=== PATIENT | female | born 2000 | race Caucasian/White ===

== ENCOUNTER 2019-06-24 14:25 | Emergency (ER) | payer BC, SELFPAY ==
[2019-06-24 14:26] VITALS: BP 117/78; PULSE 89; RESP 18; TEMP 36.8; O2SAT 100; BMI 18.5
--- NOTE | 2019-06-24 14:58 | EKG12_ITS ---
Test Reason : Blood Pressure : / mmHG Vent. Rate : 086 BPM Atrial Rate : 086 BPM P-R Int : 134 ms QRS Dur : 088 ms QT Int : 382 ms P-R-T Axes : 072 091 045 degrees QTc Int : 457 ms Normal sinus rhythm Rightward axis Borderline ECG Confirmed by TANYA BOWEN, PILAR ([id number]), editor city ANDREW CAVAZOS ([id number]) on 06/25/2019 1:45:38 PM Referred By: DEVAN Confirmed By:PILAR MARTÍNEZ MD
--- NOTE | 2019-06-24 15:00 | ED.DCSUM_ITS ---
History of Present Illness Chief Complaint: Syncope Informant: Patient Onset: Today Context: Sudden Onset Timing: Continuous Current Severity: Moderate Maximum Severity: Moderate Narrative: The patient is a 18-year-old female with recent diagnosis of migraines that presents to the emergency department with syncopal episode. The patient states she was at work. She states that she started to get lightheaded, nauseated, and had tunnel vision. She states she was diaphoretic and sat down. She then had a syncopal episode. She states that she has no seizure activity. This was witnessed. She did not strike her head. She states that she has passed out before, but never with the severity. She is currently only on Zoloft. She denies any other symptoms. She is otherwise been in her normal state of health. Prior similar symptoms: No Recent Illness/Hospitalization: No Past Medical History - Allergies and Home Meds Allergies/Adverse Reactions: Allergies No Known Allergies Allergy (Verified 02/27/18 08:59) Primary Care Physician: NOT,DEFINED [NON-STAFF] - Prior records reviewed: Yes Past Medical History: - - Migraines, depression Surgical History: noncontributory Smoking Status: Never smoker Review of Systems General: Denies: Chills, Fever, Sweats Eyes: Denies: Visual changes - bilaterally, Diplopia ENT: Denies: Rhinorrhea, Sore throat Cardiovascular: Denies: Chest pain, Palpitations Respiratory: Denies: Dyspnea, Cough, Dyspnea on exertion Gastrointestinal: Reports: Nausea. Denies: Abdominal pain, Vomiting, Diarrhea, Melena, Hematochezia Genitourinary: Denies: Dysuria, Hematuria, Frequency Musculoskeletal: Denies: Back pain, Extremity Pain Skin: Denies: Rash, Wounds Neurological: Reports: Headache. Denies: Weakness, Numbness Physical Exam Vital Signs/Narrative: Vital Signs Temp Pulse Resp BP Pulse Ox 06/24/19 14:26 98.2 F 89 18 117/78 100 Inital Vital Signs reviewed: Yes General: Well nourished, Well developed, No Acute Distress Head: Normocephalic, Atraumatic Eyes: Perrl, EOMI ENT: Moist mucous membranes, No rhinorrhea Neck: Supple, Nontender Cardiovascular: Regular rate, Regular rhythm, No murmurs Respiratory: No distress, CTA bilaterally, Chest nontender Abdomen: Soft, Nontender, Nondistended, Normal bowel sounds Back: Nontender, Normal Inspection Extremities: Nontender, No edema Skin: Normal color, No rash Neurological: Alert, Oriented x3, Cranial nerves II-XII grossly intact, Normal Strength, Normal Sensation Psychological: Normal affect, Normal Mood Diagnostic/Tx/Re-eval Abnormal Lab Results 06/24/19 06/24/19 15:33 15:33 WBC 20.0 H RBC 4.63 Hgb 13.3 Hct 40.1 MCV 86.6 MCH 28.7 MCHC 33.2 RDW Std Deviation 39.7 RDW Coeff of Rebecca 12.6 Plt Count 238 MPV 10.1 Immature Gran % (Auto) 0.500 Neut % (Auto) 86.9 H Lymph % (Auto) 6.7 L [place] % (Auto) 5.7 Eos % (Auto) 0.1 Baso % (Auto) 0.1 Absolute Neuts (auto) 17.4 H Absolute Lymphs (auto) 1.35 Nucleated RBC % 0 Sodium 137 Potassium 3.6 Chloride 106 Carbon Dioxide 26.0 Anion Gap 5 BUN 13 Creatinine 0.71 Estim Creat Clear Calc 88.59 Est GFR (MDRD) Af Amer 134 Est GFR (MDRD) Non-Af 111 BUN/Creatinine Ratio 18.3 Glucose 79 Calcium 8.9 Total Bilirubin 0.20 AST 23 ALT 21 Alkaline Phosphatase 77 Total Protein 8.1 Albumin 4.1 Globulin 4.0 Albumin/Globulin Ratio 1.0 - Rhythm Strip Rhythm Strip: Sinus Rhythm Rate: 80 Ectopy: None - EKG Initial EKG Interpretation: Sinus Rhythm, No Acute Injury Pattern Prior: No Prior - Medical Decision Making The patient presents after a syncopal episode. Her symptoms do seem vasovagal in nature. She was acutely nauseated, sweaty, lightheaded, and then passed out. There was no seizure activity. Currently, she is resting comfortably. She has a reassuring neurologic examination. EKG was obtained on arrival. It demonstrates sinus rhythm. There is no prolonged QT, WPW, or dysrhythmia. Orthostatics were obtained were negative. Screening labs were obtained. The patient does have a leukocytosis, which I feel is likely reactive. She has had no infectious symptoms. Urine does not show evidence of infection and chest x- ray was unremarkable. Patient had orthostatics which were negative. She is now resting comfortably. At this point, my suspicion is that this is likely vasovagal syncope. I do feel that the patient is safe for outpatient therapy. She was informed of results and counseled on concerning symptoms and reasons to return. She will be discharged home. Impression 1. Vasovagal syncope ED Disposition - Plan for ED Patient: Instructions: SYNCOPE, Vasovagal Referrals: NOT,DEFINED [NON-STAFF] -
--- NOTE | 2019-06-24 15:03 | NURSING ---
NO OLD EKGS
[2019-06-24] MEDS: 0.9% Normal Saline 1,000 ML 1000 ML IV ×2 (15:39→16:50)
[2019-06-24 15:58] LABS: Absolute Lymphocyte Count 1.35 X10^3/uL (0.83-4.51); Absolute Neutrophil Count 17.4 X10^3/uL (2.0-7.7); Basophil# 0.03 X10^3/uL; Basophil% 0.1 % (0-1); Eosinophil# 0.02 X10^3/uL; Eosinophils% 0.1 % (0-5); Hematocrit 40.1 % (37-47); Hemoglobin 13.3 g/dL (12.0-15.0); Lymphocyte # 1.35 X10^3/ul (4.0); Lymphocyte % 6.7 % (19-41); Mean Corp Hgb Conc 33.2 g/dL (32-36); Mean Corpuscular Hgb 28.7 pg (27.0-32.0); Mean Corpuscular Volume 86.6 fL (81-99); Mean Platelet Vol. 10.1 fl (6.2-12.0); Monocyte# 1.15 X10^3/uL; Monocyte% 5.7 % (0-10); NRBC Flagged by Analyzer 0 % (0-5); Neutrophil # 17.36 X10^3/uL (2.7-7.7); Neutrophil % 86.9 % (47-70); Platelet Count 238 K/mm3 (150-450); RBC Distribution Width CV 12.6 % (11.6-14.6); RBC Distribution Width SD 39.7 fl (35.1-43.9); Red Blood Count 4.63 M/mm3 (4.2-5.4)
[2019-06-24 16:12] LABS: AST(SGOT) 23 U/L (15-37); Alanine Aminotransfer ALT/SGPT 21 U/L (13-56); Albumin, Serum 4.1 g/dL (3.2-5.0); Alkaline Phosphatase 77 U/L (45-117); Anion Gap 5 (5-15); BUN 13 mg/dL (7-18); BUN/Creat Ratio 18.3 RATIO (10-20); Calcium,Total 8.9 mg/dL (8.5-10.1); Chloride 106 mmol/L (98-107); Creatinine, Serum 0.71 mg/dL (0.55-1.02); EST Glomerular Filtration Rate 111 mL/min (>60); Est Glom Filt Rate - Afr Amer 134 mL/min (>60); Estimated Creatinine Clearance 88.59 ml/min; Glucose 79 mg/dL (74-106); Potassium 3.6 mmol/L (3.5-5.1); Protein, Total 8.1 g/dL (6.4-8.2); Sodium Level 137 mmol/L (136-145)
[2019-06-24 16:18] VITALS: BP 129/78; BP 135/86; BP 136/81; PULSE 75; PULSE 76; PULSE 77
--- NOTE | 2019-06-24 16:20 | RAD_ITS ---
STUDY: X-RAY CHEST REASON FOR EXAM: Female, 18 years old. syncope TECHNIQUE: PA and lateral chest COMPARISON: None. FINDINGS: The lungs are clear and expanded. There is no demonstrated pleural abnormality. Normal size heart. Normal mediastinum and piyush. Normal visualized pulmonary arteries. Normal visualized aortic arch and descending thoracic aorta. Normal visualized thoracic spine. Normal visualized ribs, clavicles, and shoulders. There is no demonstrated abnormality of the visualized soft tissue structures of the upper abdomen. RAD/Chest PA and Lateral IMPRESSION: Normal x-ray examination of the chest. Electronically Signed: Wes Israel, at 16:49 EDT Tel , Service support ,
[2019-06-24 17:13] LABS: Mucous, Urine 0 SEEN /hpf (<or=2+); White Blood Cells 0 SEEN /hpf (0-5)
[2019-06-24 17:20] LABS: Color, Urine Yellow (Yellow); Glucose, Dipstick Normal (Normal); Ketone-Dipstick Negative (Negative); Leukocyte Esterase-Dipstick Negative /ul (Negative); Nitrite-Dipstick Negative (Negative); Occult Blood-Urine 150 /ul (Negative); Protein-Dipstick Negative (Negative); Urine Bilirubin Dipstick Negative (Negative); Urine Clarity Clear (Clear); Urine Urobilinogen Normal (Normal)
[2019-06-24 17:32] LABS: Internal QC Validated? YES +Cl - CLEAR BKGD; Pregnancy, Urine Negative Negative
[2019-06-24 17:37] LABS: Bacteria RARE /hpf (None Seen); Squamous Epithelial Cells - UA 0-5 SEEN /hpf (5-10)
[2019-06-24 17:38] LABS: Red Blood Cells-Urine 0-5 SEEN /hpf (0-5)
[2019-06-24 17:40] VITALS: BP 125/76; PULSE 83; RESP 16; O2SAT 100
[2019-06-24 17:59] VITALS: BP 125/76; PULSE 80; RESP 16; O2SAT 100
== END 2019-06-24 18:00 | disposition home or self-care (01) ==
LOC: ED 15:11
PROVIDERS: Emergency Provider Emergency Medicine
DX: R55 Syncope and collapse (principal); F32.9 Major depressive disorder, single episode, unspecified; G43.909 Migraine, unspecified, not intractable, without status migrainosus
CPT/HCPCS: 71046; 80053; 81001; 81025; 85025; 93005; 96360; 96361; 99285; J7030; A4216

== ENCOUNTER 2020-02-24 11:53 | Emergency (ER) | payer BC, SELFPAY ==
[2020-02-24 11:53] VITALS: BP 112/70; PULSE 71; RESP 16; TEMP 36.5; BMI 18.5
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
--- NOTE | 2020-02-24 14:04 | ED.RN ---
DISCHARGE INSTRUCTIONS GIVEN TO AND REVIEWED WITH PATIENT, PATIENT DENIES QUESTIONS OR CONCERNS AND VOICES UNDERSTANDING OF DISCHARGE INSTRUCTIONS. PT AMBULATES OUT OF ROOM WITHOUT DIFFICULTY.
== END 2020-02-24 14:05 | disposition home or self-care (01) ==
PROVIDERS: Emergency Provider Emergency Medicine
DX: M54.2 Cervicalgia (principal); M54.9 Dorsalgia, unspecified; V43.52XA Car driver injured in collision with other type car in traffic accident, initial encounter; Y92.410 Unspecified street and highway as the place of occurrence of the external cause
CPT/HCPCS: 72040; 72070; 72100; 99282

== ENCOUNTER 2021-06-11 14:09 | Outpatient (CLI) | payer OTHER, SELFPAY ==
[2021-06-18 15:24] LABS: HPV Reflexed? NOT INDICATED
== END 2021-06-11 23:59 | disposition home or self-care (01) ==
LOC: LABSPEC 14:12
PROVIDERS: Visit Provider Student in an Organized Health Care Education/Training Program
DX: Z12.4 Encounter for screening for malignant neoplasm of cervix (principal)
CPT/HCPCS: 88175; G0145

== ENCOUNTER 2021-06-15 14:46 | Outpatient (CLI) | payer OTHER, SELFPAY ==
[2021-06-17 21:07] LABS: Chlamydia By Nucleic Acid AMP Negative (Negative)
[2021-06-17 21:16] LABS: Gonococcus By Nucleic Acid AMP Negative (Negative)
== END 2021-06-15 23:59 | disposition home or self-care (01) ==
LOC: LABSPEC 14:47
PROVIDERS: Visit Provider Student in an Organized Health Care Education/Training Program
DX: Z11.3 Encounter for screening for infections with a predominantly sexual mode of transmission (principal)
CPT/HCPCS: 87491; 87591

== ENCOUNTER → 2022-07-08 | Outpatient (CLI) | payer OTHER, SELFPAY ==
[2022-07-19 12:20] LABS: HPV Reflexed? NOT INDICATED
== END | disposition home or self-care (01) ==
LOC: LABSPEC 09:34
PROVIDERS: Visit Provider Student in an Organized Health Care Education/Training Program
DX: Z12.4 Encounter for screening for malignant neoplasm of cervix (principal)
CPT/HCPCS: 88175; G0145

== ENCOUNTER → 2022-12-30 | Outpatient (CLI) | payer OTHER, SELFPAY ==
[2023-01-02 20:08] LABS: Chlamydia By Nucleic Acid AMP Negative (Negative); Gonococcus By Nucleic Acid AMP Negative (Negative)
== END | disposition home or self-care (01) ==
PROVIDERS: PCP Student in an Organized Health Care Education/Training Program; Visit Provider Obstetrics & Gynecology
DX: Z34.90 Encounter for supervision of normal pregnancy, unspecified, unspecified trimester (principal)
CPT/HCPCS: 87077; 87086; 87088; 87186; 87491; 87591

== ENCOUNTER → 2023-01-23 | Outpatient (CLI) | payer OTHER, SELFPAY ==
[2023-01-23 13:50] LABS: Absolute Lymphocyte Count 2.36 X10^3/uL (0.83-4.51); Absolute Neutrophil Count 7.9 X10^3/uL (2.0-7.7); Basophil# 0.04 X10^3/uL; Basophil% 0.4 % (0-1); Eosinophil# 0.11 X10^3/uL; Hematocrit 35.2 % (37-47); Lymphocyte # 2.36 X10^3/ul (0.83-4.51); Lymphocyte % 21.1 % (19-41); Mean Corp Hgb Conc 34.1 g/dL (32-36); Mean Corpuscular Hgb 29.3 pg (27.0-32.0); Mean Corpuscular Volume 85.9 fL (81-99); Mean Platelet Vol. 9.9 fl (6.2-12.0); Monocyte# 0.73 X10^3/uL; Monocyte% 6.5 % (0-10); NRBC Flagged by Analyzer 0 % (0-5); Neutrophil # 7.86 X10^3/uL (2.7-7.7); Neutrophil % 70.3 % (47-70); Platelet Count 251 K/mm3 (150-450); RBC Distribution Width CV 12.8 % (11.6-14.6); RBC Distribution Width SD 39.6 fl (35.1-43.9); White Blood Count 11.2 K/mm3 (4.4-11.0)
[2023-01-23 15:03] LABS: HIV - WCH Non-Reactive (Nonreactive); Hepatitis B Surface Antigen Non-Reactive (Nonreactive); Hepatitis C Antibody Non-Reactive (Nonreactive); Rubella IgG Reactive (Nonreactive); Syphilis Antibodies Non-reactive
== END | disposition home or self-care (01) ==
PROVIDERS: Obstetrics & Gynecology; PCP Student in an Organized Health Care Education/Training Program; Referring Provider Nurse Practitioner Women's Health; Visit Provider Nurse Practitioner Women's Health
DX: O99.891 Other specified diseases and conditions complicating pregnancy (principal); R82.71 Bacteriuria; Z3A.00 Weeks of gestation of pregnancy not specified
CPT/HCPCS: 36415; 85025; 86703; 86762; 86780; 86803; 86850; 86900; 86901; 87077; 87086; 87088; 87186; 87340

== ENCOUNTER → 2023-02-23 | Outpatient (CLI) | payer OTHER, SELFPAY | END | disposition home or self-care (01) | LOC: LABSPEC 13:13 | PROVIDERS: PCP Student in an Organized Health Care Education/Training Program; Visit Provider Advanced Practice Midwife | DX: O99.891 Other specified diseases and conditions complicating pregnancy (principal); R82.71 Bacteriuria; Z3A.00 Weeks of gestation of pregnancy not specified | CPT/HCPCS: 87086 ==

== ENCOUNTER → 2023-04-21 | Outpatient (CLI) | payer OTHER, SELFPAY ==
[2023-04-21 09:23] LABS: Absolute Lymphocyte Count 1.73 X10^3/uL (0.83-4.51); Basophil# 0.05 X10^3/uL; Basophil% 0.5 % (0-1); Eosinophil# 0.04 X10^3/uL; Eosinophils% 0.4 % (0-5); Hematocrit 31.1 % (37-47); Hemoglobin 10.4 g/dL (12.0-15.0); Lymphocyte # 1.73 X10^3/ul (0.83-4.51); Lymphocyte % 15.8 % (19-41); Mean Corp Hgb Conc 33.4 g/dL (32-36); Mean Corpuscular Hgb 29.2 pg (27.0-32.0); Mean Corpuscular Volume 87.4 fL (81-99); Mean Platelet Vol. 9.2 fl (6.2-12.0); Monocyte# 0.89 X10^3/uL; Monocyte% 8.2 % (0-10); NRBC Flagged by Analyzer 0 % (0-5); Neutrophil # 8.01 X10^3/uL (2.7-7.7); Neutrophil % 73.3 % (47-70); Platelet Count 221 K/mm3 (150-450); RBC Distribution Width CV 11.7 % (11.6-14.6); RBC Distribution Width SD 37.9 fl (35.1-43.9); Red Blood Count 3.56 M/mm3 (4.2-5.4); White Blood Count 10.9 K/mm3 (4.4-11.0)
--- OUTSIDE RECORDS SUMMARY | 2023-04-21 09:52 | XMS RPT_ITS | CCD ---
Author Name Unknown Address [address] [place] [address] Organization [facility] Care Team Providers Care Tibco Developer Name Role Phone DEXTER MEJIA DR Admitting Unavailable DEXTER MEJIA DR Attending Unavailable DEXTER MEJIA DR Primary Care Unavailable LISETTE POLLACK Consulting Unavailable PROVIDER, UNKNOWN Consulting Unavailable PROVIDER, UNKNOWN Consulting Unavailable PROVIDER, UNKNOWN Consulting Unavailable LISETTE POLLACK Consulting Unavailable JOLANTA, [facility] Admitting Unavaila ble JOLANTA, [facility] Attending Unavaila ble JOLANTA, [facility] Primary Care Unavaila ble PROVIDER, UNKNOWN Consulting Unavailable PROVIDER, UNKNOWN Consulting Unavailable PROVIDER, UNKNOWN Consulting Unavailable GEM RUSSELL Admitting Unavailable GEM RUSSELL Attending Unavailable GEM RUSSELL Primary Care Unavailable LISETTE POLLACK Consulting Unavailable PROVIDER, UNKNOWN Consulting Unavailable PROVIDER, UNKNOWN Consulting Unavailable PROVIDER, UNKNOWN Consulting Unavailable ROBBY COBOS Admitting Unavailable ROBBY COBOS Attending Unavailable ROBBY COBOS Primary Care Unavailable LISETTE POLLACK Consulting Unavailable PROVIDER, UNKNOWN Consulting Unavailable PROVIDER, UNKNOWN Consulting Unavailable PROVIDER, UNKNOWN Consulting Unavailable DR BLANCA RIVAS DO Primary Care Physician [phone] NO PRIMARY CARE, Primary Care Unavailable ESME GEE Referring Unavailable ALTON SHARMA Attending Unavailable Medications Current Medications Medication Drug Class(es) Dates Sig (Normalized) Sig (Original) Vitamin D3 50 mcg (2000 intl units) oral tablet (2 sources) Start: 01-03-2021 End: 04-03-2021 Vitamin D3 50 mcg (2000 intl units) oral tablet Dose : 2,000 unit(s) = 1 tab(s), Oral, Daily, with food, # 90 tab(s), 0 Refill(s), Pharmacy: [facility]/pharmacy #[id number], 156, cm, 12/15/20 8:07:00 EDT, Height, kg, 12/15/20 8:07:00 EDT, Dosing Weight Start Date: 01/03/21 Stop Date: 04/03/21 Status: Ordered Completed/Discontinued Medications Medication Drug Class(es) Dates Sig (Normalized) Sig (Original) mirtazapine 15 mg oral tablet (2 sources) Start: 01-03-2021 End: 02-02-2021 mirtazapine 15 mg oral tablet Dose : 15 mg = 1 tab(s), Oral, qHS, TAKE 1 TABLET BY MOUTH AT BEDTIME, # 30 tab(s), 0 Refill(s), Pharmacy: [facility]/pharmacy #[id number], 156, cm, 12/15/20 8:07:00 EDT, Height, kg, 12/15/20 8:07:00 EDT, Dosing Weight Start Date: 01/03/21 Stop Date: 02/02/21 Status: Ordered Problems Problem Classification Problem Date Documented Da te Episodic/Chronic Anxiety disorders (2 sources) Generalized anxiety disorder 10-22-2020 Chronic Disorders of teeth and jaw (2 sources) Bleeding gums 02-07-2019 Episodic Headache; including migraine (2 sources) Generalized headache 02-07-2019 Episodic Intracranial injury (2 sources) History of concussion injury of brain 02-07-2019 Episodic Lymphadenitis (2 sources) Lymphadenopathy 12-15-2020 Episodic Results Test Name Value Interpretation Reference Range Facil ity Encounters Encounter Date Encounter Type Care Provider Facility Start: 02-21-2023 End: 02-21-2023 ambulatory MD NO PRIMARY CARE [facility] Start: 03-25-2021 End: 03-25-[address] BLANCA RIVAS DO [facility] Start: 03-02-2021 End: 03-02-[address] BLANCA RIVAS DO [facility] Start: 03-21-2018 End: 03-21-2018 Emergency department patient visit ROBBY COBOS [facility] Start: 02-20-2018 End: 02-20-2018 Patient encounter procedure GEM RUSSELL [facility] Start: 12-20-2017 End: 12-20-2017 Patient encounter procedure LISETTE BROWN [facility] Start: 08-23-2017 End: 08-23-2017 Patient encounter procedure DEXTER MEJIA [facility] Procedures Date Procedure Procedure Detail Performing Clinician Surgery (qualifier value) DR BLANCA RIVAS DO Payers Date Payer Category Payer Unknown [id number] 1998 Unknown [id number] 1998 Unknown [id number] 1998 Unknown [id number] [id number] Unknown [id number] Unknown [id number] Unknown [id number] Social History Date Type Detail Facility Start: 02-07-2019 Never smoked t obacco (finding) [facility] Sex Assigned At [facility] Evaluation + Plan note Radiology Note Date & Type Note Facility Evaluation + Plan note Future Appointments Appointment Date:04/15/2021 08:00:00 AM Scheduled Provider:BLANCA RIVAS DO Location:[facility] Appointment Type:PC OV Diagnostic Tests PendingEstrogen, Fractionated Blood 03/02/21 Future Scheduled TestsUS Transvaginal Non OB 03/02/21US Thyroid 11/04/20 [facility] Evaluation + Plan note Radiology Note Date & Type Note Facility Evaluation + Plan note Future Appointments Appointment Date:04/15/2021 08:00:00 AM Scheduled Provider:BLANCA RIVAS DO Location:[facility] Appointment Type:PC OV Future Scheduled TestsUS Thyroid 11/04/20 [facility] Hospital course Narrative Note Date & Type Note Facility Hospital course Narrative No data available for this section [facility] Hospital Discharge instructions Note Date & Type Note Facility Hospital Discharge instructions No data available for this section [facility] Summary Purpose Family History No Family History Records FoundNo Family History Records FoundNo Family History Records FoundNo Family History Records Found Advance Directives No Advanced Directives Records FoundNo Advanced Directives Records FoundNo Advanced Directives Records FoundNo Advanced Directives Records Found Additional Source Comments INFORMATION SOURCE (unrecogn ized section and content) DATE CREATED AUTHOR AUTHOR'S ORGANIZ ATION 03/13/2019 [facility] DATE CREATED AUTHOR AUTHOR'S ORGANIZ ATION 03/26/2021 [facility] ([place]) DATE CREATED AUTHOR AUTHOR'S ORGANIZ ATION 03/05/2023 [facility] FOR RECORDS PERTAINING TO PATIENTS WHO ARE OR HAVE BEEN ENROLLED IN A CHEMICAL DEPENDENCY/SUBSTANCEABUSE PROGRAM, SOME INFORMATION MAY BE OMITTED. This clinical summary was aggregated from multiple sources. Caution should be exercised in using it in the provision of clinical care. This summary normalizes information from multiple sources, and as a consequence, information in this document may materially change the coding, format and clinical context of patient data. In addition, data may be omitted in some cases. CLINICAL DECISIONS SHOULD BE BASED ON THE PRIMARY CLINICAL RECORDS. [employer] [facility]. provides no warranty or guarantee of the accuracy or completeness of information in this document.
[2023-04-21 09:54] LABS: Glucose Challenge Gest 1H 50g 145 mg/dL (70-140)
[2023-04-21 10:20] LABS: HIV - WCH Non-Reactive (Nonreactive); Syphilis Antibodies Non-reactive
== END | disposition home or self-care (01) ==
PROVIDERS: PCP Student in an Organized Health Care Education/Training Program; Referring Provider Obstetrics & Gynecology; Visit Provider Obstetrics & Gynecology
DX: Z34.90 Encounter for supervision of normal pregnancy, unspecified, unspecified trimester (principal)
CPT/HCPCS: 36415; 82950; 85025; 86703; 86780

== ENCOUNTER → 2023-05-12 | Outpatient (CLI) | payer OTHER, SELFPAY ==
--- OUTSIDE RECORDS SUMMARY | 2023-05-12 08:02 | XMS RPT_ITS | CCD ---
Author Name Unknown Address [address] [place] [address] Organization [facility] Care Team Providers Care Civil Cad Designer Name Role Phone DEXTER MEJIA DR Admitting Unavailable DEXTER MEJIA DR Attending Unavailable DEXTER MEJIA DR Primary Care Unavailable LISETTE POLLACK Consulting Unavailable PROVIDER, UNKNOWN Consulting Unavailable PROVIDER, UNKNOWN Consulting Unavailable PROVIDER, UNKNOWN Consulting Unavailable LISETTE POLLACK Consulting Unavailable JOLANTA, [facility] Admitting Unavaila ble JOLANTA, [facility] Attending Unavaila ble JOLANTA, [facility] Primary Care Unavaila ble PROVIDER, UNKNOWN [...] food, # 90 tab(s), 0 Refill(s), Pharmacy: [facility]/pharmacy #[id number], 156, cm, 12/15/20 8:07:00 EDT, [...] BEDTIME, # 30 tab(s), 0 Refill(s), Pharmacy: [facility]/pharmacy #[id number], 156, cm, 12/15/20 8:07:00 EDT, [...] End: 02-21-2023 ambulatory MD NO PRIMARY CARE [facility] Start: 03-25-2021 End: 03-25-[address] BLANCA RIVAS DO [facility] Start: 03-02-2021 End: 03-02-[address] BLANCA RIVAS DO [facility] Start: 03-21-2018 End: 03-21-2018 Emergency department patient visit ROBBY COBOS [facility] Start: 02-20-2018 End: 02-20-2018 Patient encounter procedure GEM RUSSELL [facility] Start: 12-20-2017 End: 12-20-2017 Patient encounter procedure LISETTE BROWN [facility] Start: 08-23-2017 End: 08-23-2017 Patient encounter procedure DEXTER MEJIA [facility] Procedures Date Procedure Procedure Detail Performing Clinician Surgery (qualifier value) DR BLANCA RIVAS DO Payers Date Payer Category Payer Unknown [id number] [id number] [id number] 1998 Unknown [id number] [id number] [id number] 1998 Unknown [id number] [id number] [id number] 1998 Unknown [id number] Unknown [id number] Unknown [id number] Unknown [id number] Social History Date Type Detail Facility Start: 02-07-2019 Never smoked t obacco (finding) [facility] Sex Assigned At [facility] Evaluation + Plan note Radiology Note Date & Type Note Facility Evaluation + Plan note Future Appointments Appointment Date:04/15/2021 08:00:00 AM Scheduled Provider:BLANCA RIVAS DO Location:[facility] Appointment Type:PC OV Diagnostic Tests PendingEstrogen, Fractionated Blood 03/02/21 Future Scheduled TestsUS Transvaginal Non OB 03/02/21US Thyroid 11/04/20 [facility] Evaluation + Plan note Radiology Note Date & Type Note Facility Evaluation + Plan note Future Appointments Appointment Date:04/15/2021 08:00:00 AM Scheduled Provider:BLANCA RIVAS DO Location:[facility] Appointment Type:PC OV Future Scheduled TestsUS Thyroid 11/04/20 [facility] Hospital course Narrative Note Date & Type Note Facility Hospital course Narrative No data available for this section [facility] Hospital Discharge instructions Note Date & Type Note Facility Hospital Discharge instructions No data available for this section [facility] Summary Purpose Family History No Family History Records FoundNo Family History Records FoundNo Family History Records FoundNo Family History Records Found Advance Directives No Advanced Directives Records FoundNo Advanced Directives Records FoundNo Advanced Directives Records FoundNo Advanced Directives Records Found Additional Source Comments INFORMATION SOURCE (unrecogn ized section and content) DATE CREATED AUTHOR AUTHOR'S ORGANIZ ATION 03/13/2019 [facility] DATE CREATED AUTHOR AUTHOR'S ORGANIZ ATION 03/26/2021 [facility] ([place]) DATE CREATED AUTHOR AUTHOR'S ORGANIZ ATION 03/05/2023 [facility] FOR RECORDS PERTAINING TO PATIENTS WHO [...] BE BASED ON THE PRIMARY CLINICAL RECORDS. [employer] [facility]. provides no warranty or guarantee of the accuracy or completeness of information in this document.
[2023-05-12 08:44] LABS: Glucose GTT-Gestation. Fasting 84 mg/dL (<105)
[2023-05-12 10:28] LABS: Glucose GTT-Gestational 2 Hr 140 mg/dL (<165)
[2023-05-12 10:52] LABS: Glucose GTT-Gestational 1 Hr 155 mg/dL (<190)
[2023-05-12 11:49] LABS: Glucose GTT-Gestational 3 Hr 99 L (<145)
== END | disposition home or self-care (01) ==
PROVIDERS: PCP Student in an Organized Health Care Education/Training Program; Referring Provider Obstetrics & Gynecology; Visit Provider Obstetrics & Gynecology
DX: Z13.1 Encounter for screening for diabetes mellitus (principal)
CPT/HCPCS: 36415; 82951; 82952

== ENCOUNTER → 2023-06-30 | Outpatient (CLI) | payer OTHER, SELFPAY ==
--- OUTSIDE RECORDS SUMMARY | 2023-06-30 14:45 | XMS RPT_ITS | CCD ---
Author Name Unknown Address [address] [place] [address] Organization [facility] Care Team Providers Care Greens Tier Name Role Phone DEXTER MEJIA DR Admitting Unavailable DEXTER MEJIA DR Attending Unavailable DEXTER MEJIA DR Primary Care Unavailable LISETTE POLLACK Consulting Unavailable PROVIDER, UNKNOWN Consulting Unavailable PROVIDER, UNKNOWN Consulting Unavailable PROVIDER, UNKNOWN Consulting Unavailable LISETTE POLLACK Consulting Unavailable JOLANTA, [facility] Admitting Unavaila ble JOLANTA, [facility] Attending Unavaila ble JOLANTA, [facility] Primary Care Unavaila ble PROVIDER, UNKNOWN [...] food, # 90 tab(s), 0 Refill(s), Pharmacy: [facility]/pharmacy #[id number], 156, cm, 12/15/20 8:07:00 EDT, Height, [...] BEDTIME, # 30 tab(s), 0 Refill(s), Pharmacy: [facility]/pharmacy #[id number], 156, cm, 12/15/20 8:07:00 EDT, Height, [...] End: 02-21-2023 ambulatory MD NO PRIMARY CARE [facility] Start: 03-25-2021 End: 03-25-[address] BLANCA RIVAS DO [facility] Start: 03-02-2021 End: 03-02-[address] BLANCA IRVAS DO [facility] Start: 03-21-2018 End: 03-21-2018 Emergency department patient visit ROBBY COBOS [facility] Start: 02-20-2018 End: 02-20-2018 Patient encounter procedure GEM RUSSELL [facility] Start: 12-20-2017 End: 12-20-2017 Patient encounter procedure LISETTE BROWN [facility] Start: 08-23-2017 End: 08-23-2017 Patient encounter procedure DEXTER MEJIA [facility] Procedures Date Procedure Procedure Detail Performing Clinician Surgery (qualifier value) DR BLANCA RIVAS DO Payers Date Payer Category Payer Unknown [id number] 1998 Unknown [id number] 1998 Unknown [id number] 1998 Unknown [id number] Unknown [id number] Unknown [id number] Unknown [id number] Social History Date Type Detail Facility Start: 02-07-2019 Never smoked t obacco (finding) [facility] Sex Assigned At [facility] Evaluation + Plan note Radiology Note Date & Type Note Facility Evaluation + Plan note Future Appointments Appointment Date:04/15/2021 08:00:00 AM Scheduled Provider:BLANCA RIVAS DO Location:[facility] Appointment Type:PC OV Diagnostic Tests PendingEstrogen, Fractionated Blood 03/02/21 Future Scheduled TestsUS Transvaginal Non OB 03/02/21US Thyroid 11/04/20 [facility] Evaluation + Plan note Radiology Note Date & Type Note Facility Evaluation + Plan note Future Appointments Appointment Date:04/15/2021 08:00:00 AM Scheduled Provider:BLANCA RIVAS DO Location:[facility] Appointment Type:PC OV Future Scheduled TestsUS Thyroid 11/04/20 [facility] Hospital course Narrative Note Date & Type Note Facility Hospital course Narrative No data available for this section [facility] Hospital Discharge instructions Note Date & Type Note Facility Hospital Discharge instructions No data available for this section [facility] Summary Purpose Family History No Family History Records FoundNo Family History Records FoundNo Family History Records FoundNo Family History Records Found Advance Directives No Advanced Directives Records FoundNo Advanced Directives Records FoundNo Advanced Directives Records FoundNo Advanced Directives Records Found Additional Source Comments INFORMATION SOURCE (unrecogn ized section and content) DATE CREATED AUTHOR AUTHOR'S ORGANIZ ATION 03/13/2019 [facility] DATE CREATED AUTHOR AUTHOR'S ORGANIZ ATION 03/26/2021 [facility] ([place] DATE CREATED AUTHOR AUTHOR'S ORGANIZ ATION 03/05/2023 [facility] FOR RECORDS PERTAINING TO PATIENTS WHO ARE [...] BE BASED ON THE PRIMARY CLINICAL RECORDS. [facility]. provides no warranty or guarantee of the accuracy or completeness of information in this document.
== END | disposition home or self-care (01) ==
PROVIDERS: PCP Student in an Organized Health Care Education/Training Program; Referring Provider Advanced Practice Midwife; Visit Provider Advanced Practice Midwife
DX: Z34.90 Encounter for supervision of normal pregnancy, unspecified, unspecified trimester (principal)
CPT/HCPCS: 87081

== ENCOUNTER 2023-07-17 17:40 | Inpatient (IN) | payer OTHER, SELFPAY ==
[2023-07-17] VITALS (25 sets, daily range): BP systolic 101–138; BP diastolic 55–92; PULSE 79–96; RESP 16–17; TEMP 36.3–36.7; O2SAT 93–99; BMI 25.2
[2023-07-17 17:38] LABS: ROM Internal Control Test YES-OK TO RESULT pt. (Internal QC); Record Kit Lot#, ROM+ K1409
[2023-07-17 17:40] LABS: ROM Patient Test POSITIVE (Negative)
[2023-07-17 18:28] LABS: Absolute Lymphocyte Count 2.41 X10^3/uL (0.83-4.51); Basophil# 0.04 X10^3/uL; Basophil% 0.3 % (0-1); Eosinophil# 0.03 X10^3/uL; Eosinophils% 0.2 % (0-5); Hematocrit 35.1 % (37-47); Hemoglobin 11.9 g/dL (12.0-15.0); Lymphocyte # 2.41 X10^3/ul (0.83-4.51); Lymphocyte % 17.5 % (19-41); Mean Corp Hgb Conc 33.9 g/dL (32-36); Mean Corpuscular Hgb 28.3 pg (27.0-32.0); Mean Corpuscular Volume 83.4 fL (81-99); Mean Platelet Vol. 10.3 fl (6.2-12.0); NRBC Flagged by Analyzer 0 % (0-5); Neutrophil # 10.02 X10^3/uL (2.7-7.7); Neutrophil % 72.9 % (47-70); Platelet Count 247 K/mm3 (150-450); RBC Distribution Width CV 13.6 % (11.6-14.6); RBC Distribution Width SD 41.4 fl (35.1-43.9); Red Blood Count 4.21 M/mm3 (4.2-5.4); White Blood Count 13.8 K/mm3 (4.4-11.0)
[2023-07-17] MEDS: 0.9% Saline Lock 10 ML Syringe IV (18:53)
--- NOTE | 2023-07-17 19:10 | HP.PCM.OB_ITS ---
HPI - General General Date of Admission: 07/17/23 HPI Narrative JAIME CAST, is a 22 F who presents at 40.6 with painful contractions since this afternoon, denied lof/dec fm or vb. desires epidural placement upon admission. low risk . Maternal Data Information PIPPA Calculator Estimated Delivery Date Method Current WG Current Estimate 07/24/23 LMP (Certain) 39w 0d Other Estimates 07/19/23 Ultrasound #1 39w 5d PFSH PFSH Medical History (Updated 07/17/23 @ 19:13 by Melida Castro CNM) Abnormal ultrasound of breast Anxiety Depression Headache Home Medications fluoxetine 20 mg capsule 1 tab PO DAILY 02/24/20 [History Last Taken Unknown] docosahexaenoic acid 200 mg capsule ( DHA) mg PO 12/30/22 [History Last Taken Unknown] Allergy/AdvReac Type Severity Reaction Status Date / Time No Known Allergies Allergy Verified 07/17/23 17:20 Surgical History Hx of discectomy Hx of wisdom tooth extraction Status post lumbar surgery Social History adopted: Yes Smoking Status: Never smoker second hand exposure: No alcohol intake: never substance use type: does not use caffeine: No what type of physical activity do you participate in: none frequency: does not exercise seatbelt use: always do you feel safe at home: Yes additional social history: : Hitesh History 1 Elective abortions Hx Para 0 Spontaneous abortions Hx # Term Pregnancies Ectopic pregnancies Hx # Pregnancies Multiple births # of living children Visit Details Expected Delivery Route/Plan Labor Preferences- CB/BF classes: [] labor support person: [] labor intervention preferences: epidural pain management options preferred: [] cut cord/dad catch: [] : [] PP control planned: [] discussed possible routes of delivery and associated risks: [] special requests: [] Plans Covid status: delcined Flu vaccine: declined Tdap vaccine: declined Rhogam: na LARC form signed: done movement and labor precautions reviewed. Problem list reviewed and updated with the most current plan of care details and appropriate orders placed. Relevant counseling for the gestational age provided. Continue routine care and follow up unless otherwise noted in visit notes/problem list details OB Flowsheet Initial Weight: Not Recorded Date -?-?-?-?-?-?-?-?-?-?-?-?- EGA Weight BP Urine Prot -?-?-?-?-?-?-?-?-?-?-?-?- Glucose FHR FuHt Pres Dilation -?-?-?-?-?-?-?-?-?-?-?-?- Effaced St Visit Note 12/30/22 -?-?-?-?-?-?-?-?-?-?-?-?- 10w 4d 100 lb 2 oz 114/78 -?-?-?-?-?-?-?-?-?-?-?-?- 180 -?-?-?-?-?-?-?-?-?-?-?-?- SM- CRL 4 cm con s with LMP 01/23/23 -?-?-?-?-?-?-?-?-?-?-?-?- 14w 0d 103 lb 2 oz 108/72 Nega tive -?-?-?-?-?-?-?-?-?-?-?-?- Negative 158 -?-?-?-?-?-?-?-?-?-?-?-?- MH-No VB. Nausea persists but not as bad. PN labs today. US anatomy ordered. Declines flu vaccine, NIPT and genetic carrier screens 02/23/23 -?-?-?-?-?-?-?-?-?-?-?-?- 18w 3d 106 lb 2 oz 130/70 -?-?-?-?-?-?-?-?-?-?-?-?- 145 -?-?-?-?-?-?-?-?-?-?-?-?- KW- no vb/crampi ng. good fm. reviewed normal anatomy scan today. having libertarian for gender on sat. feeling much better-no longer having N/V. 03/24/23 -?-?-?-?-?-?-?-?-?-?-?-?- 22w 4d 110 lb 8 oz 115/77 Nega tive -?-?-?-?-?-?-?-?-?-?-?-?- Negative 144 20 -?-?-?-?-?-?-?-?-?-?-?-?- JV- no lof, vagi nal bleeding, or cramping. no complaints today. 04/21/23 -?-?-?-?-?-?-?-?-?-?-?-?- 26w 4d 115 lb 6 oz 111/72 Nega tive -?-?-?-?-?-?-?-?-?-?-?-?- Negative 145 26 -?-?-?-?-?-?-?-?-?-?-?-?- SM- no vb lof go od fm no regular ctx 05/19/23 -?-?-?-?-?-?-?-?-?-?-?-?- 30w 4d 118 lb 8 oz 110/73 Nega tive -?-?-?-?-?-?-?-?-?-?-?-?- Negative 135 29 -?-?-?-?-?-?-?-?-?-?-?-?- kw- no vb/crampi ng. good fm. normal 3 hour gct. Declines tdap. LARC done. 06/02/23 -?-?-?-?-?-?-?-?-?-?-?-?- 32w 4d 121 lb 4 oz 115/78 Nega tive -?-?-?-?-?-?-?-?-?-?-?-?- Negative 135 32 -?-?-?-?-?-?-?-?-?-?-?-?- KW- no vb/crampi ng. good fm. no concerns today 06/16/23 -?-?-?-?-?-?-?-?-?-?-?-?- 34w 4d 124 lb 4 oz 102/66 Nega tive -?-?-?-?-?-?-?-?-?-?-?-?- Negative 134 33 -?-?-?-?-?-?-?-?-?-?-?-?- JV- no lof, vagi nal bleeding, or dec fm. encourage compression stockings and fluids 06/30/23 -?-?-?-?-?-?-?-?-?-?-?-?- 36w 4d 127 lb 6 oz Negative -?-?-?-?-?-?-?-?-?-?-?-?- Negative 140 36 -?-?-?-?-?-?--?-?-?-?-?-?- KW- no vb/lof/ct x. good fm. GBS today. labor precautions. 07/07/23 -?-?-?-?-?-?-?-?-?-?-?-?- 37w 4d 127 lb 4 oz 115/77 Nega tive -?-?-?--?-?-?-?-?-?-?-?-?- Negative 155 37 Cephalic -?-?-?-?-?-?-?-?-?-?-?-?- KW- no vb/crampi ng/lof. good fm. no concerns today 07/14/23 -?-?-?-?-?-?-?-?-?-?-?-?- 38w 4d 130 lb 4 oz 122/80 Nega tive -?-?-?-?-?-?-?-?-?-?-?-?- Negative 130 37 Cephalic -?-?-?-?-?-?-?-?-?-?-?-?- SM- no vb lof go od fm n oreglar ctx ROS Cardiovascular Cardiovascular: Denies abdominal pain, chest pain, diaphoresis or dyspnea Respiratory/Chest Respiratory/Chest: Denies change in mental status, chest congestion, chest tightness, cough, shortness of breath at rest, shortness of breath with exertion, breast mass, breast pain, breast skin changes, breast swelling, change in breast shape or nipple discharge Genitourinary Genitourinary: Reports change in urinary stream Musculoskeletal Musculoskeletal: Reports none Integumentary Integumentary: Reports none Neurologic Neurologic: Reports none Psychiatric Psychiatric: Reports none Endocrine Endocrinology: Reports none Hematologic/Lymphatic Hematologic/Lymphatic: Reports none Allergic/Immunologic Allergic/Immunologic: Reports none Vital Signs Vital Signs Vital Signs: 07/17/23 17:17 07/17/23 17:17 07/17/23 17:16 Temperature Temperature Source Temporal Pulse Rate 89 Respiratory Rate Blood Pressure 121/88 H BP Systolic 121 BP Diastolic 88 07/17/23 17:16 07/17/23 17:16 Temperature 97.8 F Temperature Source Pulse Rate Respiratory Rate 16 Blood Pressure BP Systolic BP Diastolic Weight Weight: 133 lb 6.075 oz Body Mass Index (BMI) 25.2 Physical Exam Const alert, oriented x3 and no apparent distress General Appearance: cooperative, comfortable and well kempt Orientation / Consciousness: awake and oriented to person Exam Limitations: no limitations HEENT normocephalic Neck full ROM Chest inspection of chest normal Resp normal respiratory effort, normal air movement and no retractions Effort and Inspection: able to speak in complete sentences and symmetric chest movement Cardio regular rate Peripheral Pulses: pulses 2+ throughout GI normal to inspection, nondistended, normoactive bowel sounds Inspection: gravid no CVA tenderness and appearance of the vagina normal External Female Exam: normal appearance of the urethra; Negative for external lesion OB / External & Speculum: external exam normal Manual OB Exam: estimated gestational size appropriate and presentation cephalic Uterus Palpation: Negative for uterus tender Extremity normal to inspection Skin no rashes or lesions noted Neuro deep tendon reflexes 2+ bilaterally and gait normal Motor Exam: strength 5/5 throughout and clonus absent Psych Activity / Motor Behavior: appropriate eye contact Speech: normal speech Labs Labs Labs: Blood Type B POSITIVE Antibody Screen NEGATIVE Hct 35.1 % (37-47) L Hgb 11.9 g/dL (12.0-15.0) L Syphilis Total Ab Non-reactive Rubella IgG Antibody Reactive (Nonreactive) Hep Bs Antigen Non-Reactive (Nonreactive) Hepatitis C Antibody Non-Reactive (Nonreactive) Chlamydia DNA ([place]) Negative (Negative) N.gonorrhoeae DNA ([place]) Negative (Negative) HIV 1&2 Antibody Non-Reactive (Nonreactive) Glucose 1 Hr 50 gm 145 mg/dL (70-140) H Gest Glucose Tolerance MG/DL Assessment & Plan (1) Active labor at term: COMMENT: 40.6 IAL desires epidural. (2) : QUALIFIERS: Weeks of gestation: 38 weeks Qualified Code(s): Z3A.38 - 38 weeks gestation of COMMENT: gbs neg, Declines Ntd NIPT and carrier testing. Anatomy US NL (3) Supervision of normal : QUALIFIERS: Normal : normal first Trimester: second trimester Qualified Code(s): Z34.02 - Encounter for supervision of normal first , second trimester COMMENT: PRR PIPPA 07/24/23 girl Erin : Hitesh PLAN: Plan Patient presents IAL, plan expectant management for , pitocin/AROM PRN if needed. Pain management: plans epidural. GBS neg. Management of any complications: none I have reviewed the [facility] and made any clinically relevant updates. Dr. Caruso updated on admission, exam and poc. agrees with primary midwifery management for low risk pt, available as needed.
--- NOTE | 2023-07-17 19:13 | EX.PCM.OBRPT ---
Assessment & Plan (1) (spontaneous vaginal delivery): COMMENT: VIRA 40.6 boy: Lev Maternal Data Information PIPPA Calculator Estimated Delivery Date Method Current WG Current Estimate 07/24/23 LMP (Certain) 39w 0d Other Estimates 07/19/23 Ultrasound #1 39w 5d Final PIPPA Source: LMP Gestational age: 40.6 Vaginal Delivery Maternal Presentation Maternal Presentation: Active Labor Maternal Presentation: at 40.6 admitted in active labor, progressed quickly, obtained epidural, SROM and fully dilated within an hour of admission with urge to push. Operative Information Date of Procedure: 07/17/23 Pre-Operative Diagnosis: see problem list. Surgery / Procedure Performed: Spontaneous Vaginal Delivery Type of Anesthesia: Epidural Estimated Blood Loss: 500 Time of Delivery: 18:35 Findings Description of Procedure: Patient began pushing and delivered the head in the TOÑITO presentation. The head was delivered atraumatically and a loose nuchal cord ?1 was identified and easily reduced over the infant's head. The anterior and posterior shoulders delivered without complication followed by the rest of the and the was placed on the maternal abdomen. Delayed cord clamping was employed for approximately 60 seconds. Cord was clamped and cut and gentle traction was applied to the cord and the placenta delivered spontaneously immediately following it was noted to be intact with three-vessel cord. The perineum and vagina were inspected and noted to have second degree laceration repaired with 2-0 and 3-0 Vicryl in usual sterile fashion. EBL was 500cc, s/p pitocin and methergine for brisk bleeding, hemostasis achieved and fundus now firm. Patient and tolerated delivery well. Dr. Manzo updated on delivery and agrees with routine pp orders. Presentation: Vertex Time of Membrane Rupture: 181 Amniotic Fluid Description: Clear Placental Delivery Description: Spontaneous Placenta Disposition: [facility] Cord Vessel Description: 3 Vessels Cord Entanglement: Around neck x 1, loose Infant A Gender: Male (1 minute): 8 (5 minute): 9 Delayed Cord Clamping: Yes Post Vaginal Delivery Medications Given After Delivery: IV Pitocin and IM Methergin Laceration: 2nd degree Procedures Urinary/Genital [id number]: [id number] Vaginal Delivery [facility]
[2023-07-17 19:15] LABS: Syphilis Antibodies Non-reactive
--- NOTE | 2023-07-17 19:18 | DCINST_ITS ---
Discharge Instructions Diet Discharge Diet: No restrictions Activity Discharge Activity: May Not Drive and May Shower May resume sexual activity in: 6 weeks Weight Bearing Status: Full weight bearing Dressing / Incision Call your doctor if your incision/area has: Sudden Increased Bleeding, Increased Pain/ Swelling and Foul Smelling Discharge Call your doctor if you observe: Fever of 101 or Higher, Numbness or Tingling, Change in Color, Inability to urinate, Inability to have a bowel movement, Using more than 1 pad per hour, Shortness of breath, Dizziness, Fainting spells, Chest pain, Calf discomfort and Uncontrolled pain Follow Up Care Please Follow Up With: Melida Castro CNM When: 6 weeks , please call office to make an appointment. Congratulations on the of your baby! Test Results: Test results from this visit will be discussed in further detail at your follow- up appointment, if applicable. Discharge Plan Admission Admit Date/Time: 07/17/23 17:40 Attending Provider: Melida Castro Primary Care Provider: Ignacio Gaspar Discharge Orders/Prescriptions Prescriptions: No Action DHA 200 mg capsule PO fluoxetine 20 MG capsule 1 tab PO DAILY Referrals / Follow Up: Ignacio Gaspar DO [Primary Care Provider] -
--- NOTE | 2023-07-17 19:27 | HP.PCM.OB_ITS ---
HPI - General General Date of Admission: 07/17/23 Date of Service: 07/17/23 HPI Narrative JAIME CAST, is a 22 F who presents at 39 weeks with c/o leaking of fluid with irregular contractions. denies vb or dec fm. gbs negative. Maternal Data Information PIPPA Calculator Estimated Delivery Date Method Current WG Current Estimate 07/24/23 LMP (Certain) 39w 0d Other Estimates 07/19/23 Ultrasound #1 39w 5d PFSH PFSH Medical History (Updated 07/17/23 @ 19:30 by Melida Castro CNM) Abnormal ultrasound of breast Anxiety Depression Headache Home Medications fluoxetine 20 mg capsule 1 tab PO DAILY 02/24/20 [History Last Taken Unknown] docosahexaenoic acid 200 mg capsule ( DHA) mg PO 12/30/22 [History Last Taken Unknown] Allergy/AdvReac Type Severity Reaction Status Date / Time No Known Allergies Allergy Verified 07/17/23 17:20 Surgical History Hx of discectomy Hx of wisdom tooth extraction Status post lumbar surgery Social History adopted: Yes Smoking Status: Never smoker second hand exposure: No alcohol intake: never substance use type: does not use caffeine: No what type of physical activity do you participate in: none frequency: does not exercise seatbelt use: always do you feel safe at home: Yes additional social history: : Hitesh History 1 Elective abortions Hx Para 0 Spontaneous abortions Hx # Term Pregnancies Ectopic pregnancies Hx # Pregnancies Multiple births # of living children Visit Details Expected Delivery Route/Plan Labor Preferences- CB/BF classes: [] labor support person: [] labor intervention preferences: epidural pain management options preferred: [] cut cord/dad catch: [] : [] PP control planned: [] discussed possible routes of delivery and associated risks: [] special requests: [] Plans Covid status: delcined Flu vaccine: declined Tdap vaccine: declined Rhogam: na LARC form signed: done movement and labor precautions reviewed. Problem list reviewed and updated with the most current plan of care details and appropriate orders placed. Relevant counseling for the gestational age provided. Continue routine care and follow up unless otherwise noted in visit notes/problem list details OB Flowsheet Initial Weight: Not Recorded Date -?-?-?-?-?-?-?-?-?-?-?-?- EGA Weight BP Urine Prot -?-?-?-?-?-?-?-?-?-?-?-?- Glucose FHR FuHt Pres Dilation -?-?-?-?-?-?-?-?-?-?-?-?- Effaced St Visit Note 12/30/22 -?-?-?-?-?-?-?-?-?-?-?-?- 10w 4d 100 lb 2 oz 114/78 -?-?-?-?-?-?-?-?-?-?-?-?- 180 -?-?-?-?-?-?-?-?-?-?-?-?- SM- CRL 4 cm con s with LMP 01/23/23 -?-?-?-?-?-?-?-?-?-?-?-?- 14w 0d 103 lb 2 oz 108/72 Nega tive -?-?-?-?-?-?-?-?-?-?-?-?- Negative 158 -?-?-?-?-?-?-?-?-?-?-?-?- MH-No VB. Nausea persists but not as bad. PN labs today. US anatomy ordered. Declines flu vaccine, NIPT and genetic carrier screens 02/23/23 -?-?-?-?-?-?-?-?-?-?-?-?- 18w 3d 106 lb 2 oz 130/70 -?-?-?-?-?-?-?-?-?-?-?-?- 145 -?-?-?-?-?-?-?-?-?-?-?-?- KW- no vb/crampi ng. good fm. reviewed normal anatomy scan today. having republican for gender on sat. feeling much better-no longer having N/V. 03/24/23 -?-?-?-?-?-?-?-?-?-?-?-?- 22w 4d 110 lb 8 oz 115/77 Nega tive -?-?-?-?-?-?-?-?-?-?-?-?- Negative 144 20 -?-?-?-?-?-?-?-?-?-?-?-?- JV- no lof, vagi nal bleeding, or cramping. no complaints today. 04/21/23 -?-?-?-?-?-?-?-?-?-?-?-?- 26w 4d 115 lb 6 oz 111/72 Nega tive -?-?-?-?-?-?-?-?-?-?-?-?- Negative 145 26 -?-?-?-?-?-?-?-?-?-?-?-?- SM- no vb lof go od fm no regular ctx 05/19/23 -?-?-?-?-?-?-?-?-?-?-?-?- 30w 4d 118 lb 8 oz 110/73 Nega tive -?-?-?-?-?-?-?-?-?-?-?-?- Negative 135 29 -?-?-?-?-?-?-?-?-?-?-?-?- kw- no vb/crampi ng. good fm. normal 3 hour gct. Declines tdap. LARC done. 06/02/23 -?-?-?-?-?-?-?-?-?-?-?-?- 32w 4d 121 lb 4 oz 115/78 Nega tive -?-?-?-?-?-?-?-?-?-?-?-?- Negative 135 32 -?-?-?-?-?-?-?-?-?-?-?-?- KW- no vb/crampi ng. good fm. no concerns today 06/16/23 -?-?-?-?-?-?-?-?-?-?-?-?- 34w 4d 124 lb 4 oz 102/66 Nega tive -?-?-?-?-?-?-?-?-?-?-?-?- Negative 134 33 -?-?-?-?-?-?-?-?-?-?-?-?- JV- no lof, vagi nal bleeding, or dec fm. encourage compression stockings and fluids 06/30/23 -?-?-?-?-?-?-?-?-?-?-?-?- 36w 4d 127 lb 6 oz Negative -?-?-?-?-?-?-?-?-?-?-?-?- Negative 140 36 -?-?-?-?-?-?-?-?-?-?-?-?- KW- no vb/lof/ct x. good fm. GBS today. labor precautions. 07/07/23 -?-?-?-?-?-?-?-?-?-?-?-?- 37w 4d 127 lb 4 oz 115/77 Nega tive -?-?-?-?-?-?-?-?-?-?-?-?- Negative 155 37 Cephalic -?-?-?-?-?-?-?-?-?-?-?-?- KW- no vb/crampi ng/lof. good fm. no concerns today 07/14/23 -?-?-?-?-?--?-?-?-?-?-?-?- 38w 4d 130 lb 4 oz 122/80 Nega tive -?-?-?-?-?-?-?-?-?-?-?-?- Negative 130 37 Cephalic -?-?-?-?-?-?-?-?-?-?-?-?- SM- no vb lof go od fm n oreglar ctx Vital Signs Vital Signs Vital Signs: 07/17/23 17:17 07/17/23 17:17 07/17/23 17:16 Temperature Temperature Source Temporal Pulse Rate 89 Respiratory Rate Blood Pressure 121/88 H BP Systolic 121 BP Diastolic 88 07/17/23 17:16 07/17/23 17:16 07/17/23 19:13 Temperature 97.8 F Temperature Source Pulse Rate Respiratory Rate 16 Blood Pressure 124/87 H BP Systolic 124 BP Diastolic 87 07/17/23 19:13 07/17/23 19:13 07/17/23 19:13 Temperature Temperature Source Temporal Pulse Rate 86 Respiratory Rate 16 Blood Pressure BP Systolic BP Diastolic 07/17/23 19:13 Temperature 98.0 F Temperature Source Pulse Rate Respiratory Rate Blood Pressure BP Systolic BP Diastolic Weight Weight: 133 lb 6.075 oz Body Mass Index (BMI) 25.2 Physical Exam Const alert, oriented x3 and no apparent distress General Appearance: cooperative, comfortable and well kempt Orientation / Consciousness: awake and oriented to person Exam Limitations: no limitations HEENT normocephalic Neck full ROM Chest inspection of chest normal Resp normal respiratory effort, normal air movement and no retractions Effort and Inspection: able to speak in complete sentences and symmetric chest movement Cardio regular rate Peripheral Pulses: pulses 2+ throughout GI normal to inspection, nondistended, normoactive bowel sounds Inspection: gravid no CVA tenderness and appearance of the vagina normal External Female Exam: normal appearance of the urethra; Negative for external lesion OB / External & Speculum: external exam normal Manual OB Exam: estimated gestational size appropriate and presentation cephalic Uterus Palpation: Negative for uterus tender Extremity normal to inspection Skin no rashes or lesions noted Neuro deep tendon reflexes 2+ bilaterally and gait normal Motor Exam: strength 5/5 throughout and clonus absent Psych Activity / Motor Behavior: appropriate eye contact Speech: normal speech Labs Labs Labs: Blood Type B POSITIVE Antibody Screen NEGATIVE Hct 35.1 % (37-47) L Hgb 11.9 g/dL (12.0-15.0) L Syphilis Total Ab Non-reactive Rubella IgG Antibody Reactive (Nonreactive) Hep Bs Antigen Non-Reactive (Nonreactive) Hepatitis C Antibody Non-Reactive (Nonreactive) Chlamydia DNA ([place]) Negative (Negative) N.gonorrhoeae DNA ([place]) Negative (Negative) HIV 1&2 Antibody Non-Reactive (Nonreactive) Glucose 1 Hr 50 gm 145 mg/dL (70-140) H Gest Glucose Tolerance MG/DL Assessment & Plan (1) SROM (spontaneous rupture of membranes): COMMENT: 39 week ROM clear, gbs neg (2) : QUALIFIERS: Weeks of gestation: 38 weeks Qualified Code(s): Z3A.38 - 38 weeks gestation of COMMENT: gbs neg, Declines Ntd NIPT and carrier testing. Anatomy US NL (3) Supervision of normal : QUALIFIERS: Normal : normal first Trimester: second trimester Qualified Code(s): Z34.02 - Encounter for supervision of normal first , second trimester COMMENT: PRR PIPPA 07/24/23 girl Erin : Hitesh PLAN: Plan Patient presents SROM, clear fluid, early labor. Pain management: plans epidural. GBS negative. Management of any complications: none I have reviewed the PFSH and made any clinically relevant updates. plan to augment if no cervical change by [address] Manzo updated on exam, admission and poc. agrees with above management.
[2023-07-17] MEDS: LACTATED RINGERS 500 ML 999 ML IV (21:47)
[2023-07-17] MEDS: Lactated Ringers 1,000 ML 200 ML IV (21:47)
[2023-07-17] MEDS: fentaNYL-bupivacaine (epidural) 100 ML BAG EPIDURAL (22:25)
[2023-07-18] VITALS (30 sets, daily range): BP systolic 97–119; BP diastolic 53–75; PULSE 72–149; RESP 16–20; TEMP 36.3–37.4; O2SAT 80–100
[2023-07-18] MEDS: 0.9% Saline Lock 10 ML Syringe IV ×2 (03:11→16:39)
[2023-07-18] MEDS: Ondansetron 4 MG/2 ML Vial IV (03:11)
--- NOTE | 2023-07-18 03:12 | PCM.PN.OB ---
Subjective Subjective comfortable with epidural Objective Data Objective Data Vital Signs: Vital Signs Temp Pulse Resp BP Pulse Ox 97.4 F L 82 16 112/71 80 07/18/23 01:27 07/18/23 03:09 07/18/23 01:27 07/18/23 03:09 07/18/23 03:10 Weight: 133 lb 6.075 oz Body Mass Index (BMI) 25.2 Intake & Output: Intake and Output for Last 24 Hours 07/16/23 07/17/23 07/18/23 23:59 23:59 23:59 Output Total 450 / 450 Balance -450 / -450 Lab / Micro Data 07/17/23 18:00 Labs: Laboratory Results - last 24 hr 07/17/23 17:25: Vag Amniotic Fld Detect POSITIVE H 07/17/23 18:00: WBC 13.8 H, RBC 4.21, Hgb 11.9 L, Hct 35.1 L, MCV 83.4, MCH 28.3, MCHC 33.9, RDW Std Deviation 41.4, RDW Coeff of [place] 13.6, Plt Count 247, MPV 10.3, Immature Gran % (Auto) 1.100 H, Neut % (Auto) 72.9 H, Lymph % (Auto) 17.5 L, [place] % (Auto) 8.0, Eos % (Auto) 0.2, Baso % (Auto) 0.3, Absolute Neuts (auto) 10.0 H, Absolute Lymphs (auto) 2.41, Nucleated RBC % 0, Syphilis Total Ab Non-reactive, Blood Type B POSITIVE, Antibody Screen NEGATIVE NST FHR Rate Baby A Baseline: 120 Variability:: Moderate Accelerations:: 15 x 15 Decelerations:: None NST Reactive:: Yes FHR Category:: Category I Uterine Activity:: q3 minute Assessment & Plan (1) SROM (spontaneous rupture of membranes): COMMENT: 39 week ROM clear, gbs neg PLAN: -making cervical change in active labor s/p epidural placement -if contractions space to less than 5-8minutes apart or no cervical change in 4 hours will augment with pitocin -reassuring maternal and status -continue frequent position changes.
[2023-07-18] MEDS: fentaNYL-bupivacaine (epidural) 100 ML BAG EPIDURAL ×2 (03:13→08:21)
[2023-07-18] MEDS: Lactated Ringers 1,000 ML 200 ML IV ×2 (03:18→08:16)
[2023-07-18] MEDS: LACTATED RINGERS 500 ML 999 ML IV ×2 (03:39→10:50)
--- NOTE | 2023-07-18 05:45 | PCM.PN.OB ---
Subjective Subjective comfortable with epidural, feels epidural is dense and upper body is being affected. Objective Data Objective Data Vital Signs: Vital Signs Temp Pulse Resp BP Pulse Ox 97.4 F L 80 16 111/66 97 07/18/23 01:27 07/18/23 04:22 07/18/23 01:27 07/18/23 04:22 07/18/23 04:22 Weight: 133 lb 6.075 oz Body Mass Index (BMI) 25.2 Intake & Output: Intake and Output for Last 24 Hours 07/16/23 07/17/23 07/18/23 23:59 23:59 23:59 Intake Total 500 / 500 1500 / 1500 Output Total 450 / 450 700 / 700 Balance 50 / 50 800 / 800 Lab / Micro Data 07/17/23 18:00 Labs: Laboratory Results - last 24 hr 07/17/23 17:25: Vag Amniotic Fld Detect POSITIVE H 07/17/23 18:00: WBC 13.8 H, RBC 4.21, Hgb 11.9 L, Hct 35.1 L, MCV 83.4, MCH 28.3, MCHC 33.9, RDW Std Deviation 41.4, RDW Coeff of [place] 13.6, Plt Count 247, MPV 10.3, Immature Gran % (Auto) 1.100 H, Neut % (Auto) 72.9 H, Lymph % (Auto) 17.5 L, [place] % (Auto) 8.0, Eos % (Auto) 0.2, Baso % (Auto) 0.3, Absolute Neuts (auto) 10.0 H, Absolute Lymphs (auto) 2.41, Nucleated RBC % 0, Syphilis Total Ab Non-reactive, Blood Type B POSITIVE, Antibody Screen NEGATIVE Physical Exam Const alert and no apparent distress Resp normal respiratory effort, normal air movement and no retractions Effort and Inspection: able to speak in complete sentences Cardio regular rate and regular rhythm Manual OB Exam: dilated 8, effaced 85 and station +1 Extremity normal to inspection Skin no rashes or lesions noted Assessment & Plan (1) SROM (spontaneous rupture of membranes): COMMENT: 39 week ROM clear, gbs neg (2) Active labor at term: COMMENT: spontaneous contractions. pit PRN PLAN: Plan -anticipate -continue repositioning frequently. -turn down epidural per pt request.
--- NOTE | 2023-07-18 07:40 | PCM.PN.BLA ---
Progress Note comfortable with epidural current tracing: FHT: 135 Moderate variability reactive no decelerations category I tracing [place]: 2-4 minute Contractions Membranes:ruptured remains clear SVE:8/90/0 A/P: Continue with position changes Titrate pitocin per protocol Epidural per anesthesia Anticipate Dr Gordon aware of above assessment and agrees with plan of care Assessment & Plan Assessment/Plan (1) Active labor at term: (2) SROM (spontaneous rupture of membranes): (3) Abnormal glucose level: (4) Asymptomatic bacteriuria during : (5) : QUALIFIERS: Weeks of gestation: 38 weeks Qualified Code(s): Z3A.38 - 38 weeks gestation of (6) Supervision of normal : QUALIFIERS: Normal : normal first Trimester: second trimester Qualified Code(s): Z34.02 - Encounter for supervision of normal first , second trimester Multi Select Codes Urinary/Genital Urinary/Genital CPT Codes: No Charge
[2023-07-18] MEDS: Oxytocin 15 Units/NS 250ml 15 UNITS/250 ML IV.SOLN 2 UNITS IV (08:11)
--- NOTE | 2023-07-18 11:50 | PCM.PN.BLA ---
Progress Note comfortable with epidural current tracing: FHT: 120 Moderate variability reactive variable decelerations with pushing. overall reassuring category II tracing [place]: 2-3 minute Contractions Membranes:remain clear SVE:10/+2 and pushing A/P: Continue with position changes Titrate pitocin per protocol Epidural per anesthesia Anticipate Dr Gordon aware of above assessment and agrees with plan of care Assessment & Plan Assessment/Plan (1) Active labor at term: (2) : QUALIFIERS: Weeks of gestation: 38 weeks Qualified Code(s): Z3A.38 - 38 weeks gestation of (3) SROM (spontaneous rupture of membranes): (4) Supervision of normal : QUALIFIERS: Normal : normal first Trimester: second trimester Qualified Code(s): Z34.02 - Encounter for supervision of normal first , second trimester Multi Select Codes Urinary/Genital Urinary/Genital CPT Codes: No Charge
[2023-07-18] MEDS: Oxytocin 15 Units/NS 250ml 15 UNITS/250 ML IV.SOLN 83 UNITS IV (13:30)
--- NOTE | 2023-07-18 13:42 | OP.PCM_ITS ---
Assessment & Plan (1) Vaginal delivery: COMMENT: KW 39.0 Girl partial 3rd Maternal Data Information Final PIPPA: 07/18/23 Final PIPPA Source: [place] >20 weeks Gestational age: 39.0 weeks Vaginal Delivery Maternal Presentation Maternal Presentation: Progressed well to 10cm dilated and made steady progress with effective maternal pushing. Delivered the head in [place] presentation. The head was delivered atraumatically and a tight nuchal cord was identified and somersaulted through cord. The anterior and posterior shoulders delivered without complication followed by the rest of the and the infant was placed on the maternal abdomen. Delayed cord clamping was employed for approximately 3 minutes. Cord was clamped and cut and gentle traction was applied to the cord and the placenta delivered spontaneously. Immediately following, it was noted to be intact with a 3 vessel cord. The perineum and vagina were inspected and noted to have a partial degree laceration. Dr Gordon called for assistance and which was repaired with 3-0 Vicryl in the usual fashion. See her op note for further details EBL was 200cc. Patient and infant tolerated delivery well. Apgars 8/9. Dr Gordon notified of vaginal delivery and orders reviewed. Physician agrees with current plan of care. Operative Information Date of Procedure: 07/18/23 Pre-Operative Diagnosis: See AP comments Post-Operative Diagnosis: Same Surgery / Procedure Performed: Spontaneous Vaginal Delivery laser machine operator #1: Lilly Schulz Type of Anesthesia: Epidural Estimated Blood Loss: 200 Time of Delivery: 12:53 Findings Presentation: Vertex Amniotic Membrane Rupture Type: Spontaneous Amniotic Fluid Description: Clear Placental Delivery Description: Spontaneous Placenta Disposition: [facility] Cord Vessel Description: 3 Vessels Cord Entanglement: Around neck x 1, tight A Gender: Female (1 minute): 8 (5 minute): 9 Delayed Cord Clamping: Yes Post Vaginal Delivery Medications Given After Delivery: IV Pitocin Episiotomy Description: None Laceration: 3rd degree Complication Complications: None Multi Select Codes Urinary/Genital Urinary/Genital CPT Codes: 12291 Vaginal Delivery [facility]
[2023-07-18] MEDS: Senna/Docusate Sodium 1 Tablet PO (16:00)
[2023-07-18] MEDS: Acetaminophen 500 MG Tablet 1000 MG PO (21:44)
[2023-07-18] MEDS: Naproxen 500 MG Tablet PO (23:29)
[2023-07-19 04:10] VITALS: BP 108/76; PULSE 89; RESP 18
[2023-07-19] MEDS: Acetaminophen 500 MG Tablet 1000 MG PO ×3 (06:45→22:32)
[2023-07-19 08:15] VITALS: BP 90/60; PULSE 67; RESP 14; TEMP 37; O2SAT 99
[2023-07-19] MEDS: Senna/Docusate Sodium 1 Tablet PO (09:33)
[2023-07-19] MEDS: Naproxen 500 MG Tablet PO ×2 (09:34→17:38)
--- NOTE | 2023-07-19 09:34 | PCM.PN.OB ---
Subjective Subjective Patient doing well without complaints. Tolerating PO. Ambulating and voiding without difficulty. Feeding well. Denies chest pain, shortness of breath, calf pain/swelling, fevers, chills, lightheadedness. Objective Data Objective Data Vital Signs: Vital Signs Temp Pulse Resp BP Pulse Ox O2 Del Method 98.6 F 67 14 90/60 99 Room Air 07/19/23 08:15 07/19/23 08:15 07/19/23 08:15 07/19/23 08:15 07/19/23 08:15 07/19/23 08:15 Oxygen Delivery Method Room Air Weight: 133 lb 6.075 oz Body Mass Index (BMI) 25.2 Intake & Output: Intake and Output for Last 24 Hours 07/17/23 07/18/23 07/19/23 23:59 23:59 23:59 Intake Total 500 / 500 4556.56 / 4556.56 Output Total 450 / 450 1700 / 1700 Balance 50 / 50 2856.56 / 2856.56 Lab / Micro Data 07/17/23 18:00 Physical Exam Const alert and oriented x3 HEENT normocephalic Eyes PERRL Neck full ROM Resp normal respiratory effort GI soft to palpation GI Narrative: FF below U Assessment & Plan (1) Vaginal delivery: COMMENT: KW 39.0 Girl partial 3rd PLAN: Plan s/p PPD # 1 1. routine post delivery care 2. breast feeding- support given 3. rh positive 4. rubella immune
[2023-07-19 12:55] VITALS: BP 108/85; PULSE 80; RESP 16; TEMP 37.1; O2SAT 98
[2023-07-19 20:36] VITALS: BP 120/80; PULSE 83; RESP 18
[2023-07-19] MEDS: Benzocaine/Lanolin/Aloe Vera 1 SPRAY EACH TOPICAL (22:33)
[2023-07-20 02:03] VITALS: BP 129/68; PULSE 79; RESP 18
--- NOTE | 2023-07-20 07:39 | PCM.PN.OB ---
Subjective Subjective Patient doing well without complaints. Tolerating PO. Ambulating and voiding without difficulty. feeding well. Denies chest pain, shortness of breath, calf pain/swelling, fevers, chills, lightheadedness. Objective Data Objective Data Vital Signs: Vital Signs Temp Pulse Resp BP Pulse Ox O2 Del Method 98.7 F 79 18 129/68 H 98 Room Air 07/19/23 12:55 07/20/23 02:03 07/20/23 02:03 07/20/23 02:03 07/19/23 12:55 07/20/23 02:03 Oxygen Delivery Method Room Air Weight: 133 lb 6.075 oz Body Mass Index (BMI) 25.2 Intake & Output: Intake and Output for Last 24 Hours 07/18/23 07/19/23 07/20/23 23:59 23:59 23:59 Intake Total 4556.56 / 4556.56 Output Total 1700 / 1700 Balance 2856.56 / 2856.56 Lab / Micro Data 07/17/23 18:00 ROS Constitutional Constitutional: Reports systems reviewed and no addt'l complaints, except as documented Cardiovascular Cardiovascular: Reports systems reviewed and no addt'l complaints, except as documented Respiratory/Chest Respiratory/Chest: Reports systems reviewed and no addt'l complaints, except as documented Gastrointestinal Gastrointestinal: Reports systems reviewed and no addt'l complaints, except as documented Physical Exam Const alert, oriented x3 and no apparent distress HEENT Head and Scalp: atraumatic Resp normal respiratory effort GI soft to palpation and non-tender Bimanual Exam - Vag & Uterus: uterus non-tender Uterus Palpation: uterus fundus firm (below Umbilicus) Assessment & Plan (1) Vaginal delivery: COMMENT: KW 39.0 Girl partial 3rd PLAN: Plan s/p PPD # 1 1. routine post delivery care 2. breast feeding- support given 3. rh positive 4. rubella immune
[2023-07-20 08:45] VITALS: BP 114/76; PULSE 92; RESP 18; TEMP 37.2; O2SAT 99
[2023-07-20] MEDS: Senna/Docusate Sodium 1 Tablet PO (10:13)
[2023-07-20] MEDS: Naproxen 500 MG Tablet PO (10:13)
--- NOTE | 2023-07-20 10:23 | CASEMGMT ---
Social Work Assessment Labor and Delivery Unit Patient Address: [address] [place] [address] Phone number: [phone] Date of Referral: 07/18/23 Time of Referral:?1731 Referred By: Lilly Schulz Date of Intervention: ??07/20/23 Time of Intervention:? 929 Reason for Referral:? history of depression and anxiety Sw completed chart review and acknowledges social work consult due to maternal mental health history positive for anxiety and depression. Sw presented to bedside and introduced self to mother of baby (MOB- Roberta) and father of baby (FOB- Hitesh). Sw explained reason for sw involvement and completed psychosocial assessment. History obtained from: medical records, MOB and FOB Household composition: Currently residing in the family home is MOB, FOAnnalisa and now baby when ready for discharge. Parents deny any issues or concerns with their housing. Patient's parent/guardian status:? KATHERINE states that she and JAYDA started dating in high school and have been together for 7 years. KATHERINE denies any issues or concerns with domestic violence or intimate partner violence. ? Medical History: ?KATHERINE is 22 year old female who is 1, para 0- now 1 following labor and delivery of . KATHERINE received routine care during with [facility]. KATHERINE presented to hospital and delivered baby via vaginal delivery on 07/18/23 at 39 weeks gestation. Baby girl, Fox Griffith, was born weighing 7lb 6oz and her apgars were 8 and 9 at one and five minutes of life, respectfully. KATHERINE states that baby will be followed by Dr. Gustafson for pediatrics. KATHERINE states that she is breast feeding and this is going well. Educational Status:? MOB graduated from high school and JAYDA obtained a Bachelors degree. No issues with reading, learning or comprehension. Financial Status: Both parents are gainfully employed outside of the home. JAYDA works for a summer camp in [place]. The winter months JAYDA works remotely from [place] as the Head of Staff. In the Spring- Fall parents move to [place] and live there while JAYDA works for the summer camp as the [employer] Director. KATHERINE works for [employer] and is able to work remotely. Parents are preparing to be moving in the beginning of August to [place]. Supplies:??Parents have obtained all necessary baby supplies, including: car seat, safe sleep space, clothes, diapers and wipes. KATHERINE states that she has a breast pump. Childcare/Caregiver(s):? KATHERINE will be the primary caregiver to baby along with JAYDA when he is not at work. Transportation:?? Both parents have their drivers license and reliable means of transportation, no barriers at this time. Programs/Agencies Involved: ?Parents are not connected to any community resources that assist them financially. KATHERINE reports that she is connected to mental health supports and services provided by [facility]. ?? Children Services/Legal Issues:??? No history of involvement, no issues or concerns warranting referral to be made at this time. Behavioral Health Issues: ??Mental Health History:?JAYDA denies mental health history. MOB states that she has been diagnosed with anxiety and depression. KATHERINE was previously prescribed fluoxetine, but has not been taking it for the past two years. KATHERINE completed [place] Depression Scale and her score was 13. Sw provided education and support. MOB tearful during assessment and discussion of mental health symptoms. MOB states that she has already been feeling anxious and has been tearful. ?? Substance Use History: MOB denies substance use prior to and during . ?? Family History:?KATHERINE is adopted, and states that her biological mother was an alcoholic. MOB states that she is mindful of this and uses healthy and appropriate coping skills so that she does not seek comfort from alcohol. ? Drug Screens: ?NO drug screens observed during chart review. ? Family/Social Stressors:? MOB states that the only concern she has at this time is her mental health. MOB expressed plan on talking to FOB and other family members and friends who will be able to help support her during this period. Support Systems: MOB states that FOB and both grandma's are their biggest sets of support people at this time. MOB states that in [place] they also have a large support group. MOB states that they are familiar of mental health services that are available to them in [place]. Depression/Shaken Baby/Safe Sleeping:? Kashif educated and spoke at length with parents regarding signs and symptoms of baby blues and depression and anxiety to be on the lookout for. Sw explained MOB predisposition to experience mental health symptoms during this period. Sw encouraged MOB to stay connected to the mental health services and supports that she is already connected to. Sw talked about getting connected to [facility] as it is a virtual mental health services that may be beneficial for MOB to utilize when she is not living in [place]. MOB expressed understanding. MOB tearful during this part of conversation, and states that she is tired. Sw educated parents on shaken baby prevention and ABCs of safe sleep. Parents express understanding. ASSESSMENT:? MOB and baby admitted following labor and delivery of . MOB and FOB both present and engaged in conversation during completion of psychosocial assessment. MOB made and maintained eye contact, and was appropriately tearful throughout parts of conversation. MOB aware of her already experiencing several symptoms of baby blues/ anxiety/ depression. MOB and FOB both observed to provide loving and appropriate hands on care of . Sw provided parents with resources including: Help Me Grow, Safe Sleep, Shaken baby prevention and [facility] resources (including mental health). PLAN:? MOB and baby to be discharged when medically ready. ?No other services requested or indicated. Caroline Gaspar, CORRECTIONAL CAPTAIN, EDUCATIONAL TECHNOLOGIST
--- NOTE | 2023-07-24 15:27 | NURSING ---
Follow up phone call made. Patient states she is doing well, finally got some good rest. is going well, has had 2 consults already and will have another later this week. Patient states her bleeding is very minimal, and her stitches are healing well. Denies any further questions or concerns at this time.
--- NOTE | 2023-08-01 06:12 | PCM.OP.BLANK ---
Operative Report Date of Procedure: 07/18/23 patient had partial 3rd degree laceration, sphincter capsule reinforced with 2-0 vicryl interrupted sutures and the vaginal mucosa closed with 3-0 vicryl without complication. the remainder of the laceraiton repaired in the usual fashion by the ocean rescue lieutenant eduardo upton, see her note for additional information.
== END 2023-07-20 12:10 | disposition home or self-care (01) | DRG 768 ==
LOC: WPOUT 17:42 → WP 17:42
PROVIDERS: Registered Nurse; Admitting Provider Advanced Practice Midwife; PCP Student in an Organized Health Care Education/Training Program; Visit Provider Advanced Practice Midwife
DX: O76 Abnormality in fetal heart rate and rhythm complicating labor and delivery (principal); Z37.0 Single live birth; O70.20 Third degree perineal laceration during delivery, unspecified; O42.92 Full-term premature rupture of membranes, unspecified as to length of time between rupture and onset of labor; O69.1XX0 Labor and delivery complicated by cord around neck, with compression, not applicable or unspecified; Z3A.39 39 weeks gestation of pregnancy
CPT/HCPCS: 59025; 59050; 84112; 85025; 86780; 86850; 86900; 86901; 99221; A4216; G0378; J2405